=== PATIENT | female | born 1980 | race Caucasian/White ===

== ENCOUNTER 2023-05-27 13:59 | Emergency (ER) | payer MEDICAID ==
[2023-05-27] MEDS ORDERED: Sodium Chloride 0.9% 1,000 ML IV ONE (15:07)
[2023-05-27] MEDS ORDERED: Ibuprofen 200 MG Tab PO PRN (15:07)
[2023-05-27 15:36] LABS: CORONAVIRUS COVID-19 NAA NEGATIVE (NEGATIVE); INFLUENZA A NAA NEGATIVE (NEGATIVE); INFLUENZA B NAA NEGATIVE (NEGATIVE); RESPIRATORY SYNCYTIAL VIR NAA NEGATIVE (NEGATIVE)
[2023-05-27] MEDS ORDERED: Penicillin G Benzathine 1,200,000 Units/2 ML Syringe IM ONE (15:54)
== END 2023-05-27 16:30 | disposition home or self-care (01) ==
LOC: VM.ED 13:59
DX: J02.0 Streptococcal pharyngitis (principal); E86.0 Dehydration
CPT/HCPCS: 0241U; 87651; 99284; A9270-GY; J0561; J7030